=== PATIENT | male | born 1950 | race Hispanic/Latino ===

== ENCOUNTER 2016-02-23 12:27 | Day surgery (SDC) | payer BC, MEDICARE ==
[2016-02-23 13:25] LABS: INR 1.15 (0.87-1.13)
[2016-02-23 13:26] LABS: Partial Thromboplastin Time 30.7 Sec. (24.2-36.6)
--- NOTE | 2016-02-23 15:51 | Procedure Note ---
Date of procedure: 02/23/16 Pre-op diagnosis: ascites Post-op diagnosis: same Procedure: paracentesis Findings: clear fluid Anesthesia: local Surgeon: MEERA OCAMPO Estimated blood loss: none Pathology: none Specimen disposition: discarded Condition: stable Disposition: same day
--- NOTE | 2016-02-23 15:51 | History and Physical Report ---
History of Present Illness Date of examination: 02/23/16 Chief complaint: distended abdomen Medications and Allergies Allergies Allergy/AdvReac Type Severity Reaction Status Date / Time acetaminophen [From Percocet] AdvReac Nausea Verified 02/23/16 12:46 oxycodone HCl [From Percocet] AdvReac Nausea Verified 02/23/16 12:46 Home Medications Medication Instructions Recorded Confirmed Last Taken Type Dexamethasone [Dexamethasone] 2 mg PO DAILY 02/23/16 02/23/16 02/22/16 History 2mg Furosemide [Furosemide] 20 mg PO DAILY 02/23/16 02/23/16 02/22/16 History 20mg Morphine Sulfate [Morphine Sulfate] 15 mg PO DAILY PRN 02/23/16 02/23/16 History 15mg Ondansetron [Ondansetron Odt] 8 mg PO DAILY PRN 02/23/16 02/23/16 02/22/16 History 8mg Tadalafil [Cialis] 5 mg PO DAILY 02/23/16 02/23/16 02/22/16 History 5mg Temazepam [Restoril] 30 mg PO QHS 02/23/16 02/23/16 02/22/16 History 30mg Exam Vital Signs Temp Pulse Resp BP Pulse Ox 97.5 F L 107 H 20 137/89 97 02/23/16 13:08 02/23/16 13:08 02/23/16 13:08 02/23/16 13:08 02/23/16 13:08
--- NOTE | 2016-02-23 15:56 | Ultrasound Report ---
Ultrasound guided paracentesis: Imaging of the abdomen demonstrates a moderate by him of fluid interposed between a lot of floating bowel. An optimum location for approach was made in the lower left abdomen. The skin was cleansed. A small skin delia was made through which a 5 [place] Yueh catheter was placed. 3.2 L of clear fluid was successfully removed and discarded. Minimal fluid remained on reevaluation with ultrasound. No complications encountered. The entrance site was bandaged and the patient was sent to [facility] for observation prior to discharge.
[2016-02-23 16:12] VITALS: BP 137/60
== END 2016-02-23 16:10 | disposition home or self-care (01) ==
LOC: OPU 12:27
PROVIDERS: ATTEND Internal Medicine Hematology & Oncology
DX: R18.8 Other ascites (principal); Z87.891 Personal history of nicotine dependence
CPT/HCPCS: 36415; 49083; 85610; 85730

== ENCOUNTER 2016-02-29 11:49 | Day surgery (SDC) | payer BC, MEDICARE ==
--- NOTE | 2016-02-29 14:05 | History and Physical Report ---
History of Present Illness Date of examination: 02/29/16 Chief complaint: abdominal distention Medications and Allergies Allergies Allergy/AdvReac Type Severity Reaction Status Date / Time acetaminophen [From Percocet] AdvReac Nausea Verified 02/23/16 12:46 oxycodone HCl [From Percocet] AdvReac Nausea Verified 02/23/16 12:46 Home Medications Medication Instructions Recorded Confirmed Last Taken Type Dexamethasone [Dexamethasone] 2 mg PO DAILY 02/23/16 02/29/16 02/28/16 History Furosemide [Furosemide] 20 mg PO DAILY 02/23/16 02/29/16 02/29/16 06:30 History Morphine Sulfate [Morphine Sulfate] 15 mg PO DAILY PRN 02/23/16 02/29/16 06:30 History Ondansetron [Ondansetron Odt] 8 mg PO DAILY PRN 02/23/16 02/29/16 02/22/16 History 8mg Tadalafil [Cialis] 5 mg PO DAILY 02/23/16 02/29/16 02/28/16 History Temazepam [Restoril] 30 mg PO QHS 02/23/16 02/29/16 02/28/16 History Ascorbic Acid [Vitamin C] 1,500 mg PO DAILY 02/29/16 02/29/16 02/29/16 06:30 History Ergocalciferol (Vitamin D2) 4,000 unit PO DAILY 02/29/16 02/29/16 02/29/16 History [Vitamin D2] Vitamin B Complex [Super B-50 1 each PO DAILY 02/29/16 02/29/16 02/29/16 06:30 History Complex] Vitamin E 800 unit PO DAILY 02/29/16 02/29/16 02/29/16 06:30 History Exam Vital Signs Temp Pulse Resp BP Pulse Ox 97.9 F 119 H 19 123/87 97 02/29/16 12:21 02/29/16 12:21 02/29/16 12:21 02/29/16 12:21 02/29/16 12:21
--- NOTE | 2016-02-29 14:07 | Procedure Note ---
Date of procedure: 02/29/16 Pre-op diagnosis: ascites Post-op diagnosis: same Procedure: paracentesis Findings: clear fluid Anesthesia: local Surgeon: MEREA OCAMPO Estimated blood loss: none Pathology: list (120cc fluid) Specimen disposition: to lab Condition: stable Disposition: observation
--- NOTE | 2016-02-29 14:50 | Ultrasound Report ---
Ultrasound guided paracentesis: Imaging of the abdomen demonstrates an optimum approach in the left lower quadrant. The skin was cleansed. 1% lidocaine used local anesthesia. A small skin delia was made through which a 5 [place] Recondoeh catheter was placed into the fluid pocket. A total of 2.5 L was successfully removed, 120 cc of which was sent to the lab for evaluation. No complication encountered.
[2016-02-29 14:54] VITALS: BP 120/78
== END 2016-02-29 14:45 | disposition home or self-care (01) ==
LOC: OPU 11:49
PROVIDERS: ATTEND Internal Medicine Hematology & Oncology
DX: R18.8 Other ascites (principal)
CPT/HCPCS: 49083; 88112; 88305; 88342